=== PATIENT | male | born 1960 | race Caucasian/White ===

== ENCOUNTER 2018-05-05 10:11 | Emergency (ER) | payer OTHER ==
[~2018-05-05] VITALS: Ht 188 cm; Wt 133.8 kg
[~2018-05-05 10:11] MED LIST: BAYER CHEWABLE81 MG PO; CARVEDILOL12.5 MG PO; COLACE100 MG PO; HYDROCHLOROTH12.5 M1 PO; LIPITOR40 MG PO; LISINOPRIL10 MG PO; NITROGLYCERIN0.4 MG SUBLING; NORCO 5-325 TA1 EACH PO; PACERONE 200 M200 M1 PO; PROTONIX40 M1 PO
[2018-05-05] MEDS ORDERED: ENDOCET 5-3251 EACH PO (10:15)
[2018-05-05] MEDS ORDERED: ELIQUIS2.5 MG PO (10:15)
[2018-05-05] MEDS ORDERED: NEURONTIN 300300 M1 PO (10:16)
[2018-05-05] MEDS ORDERED: CELEBREX 200 M200 M1 PO (10:16)
[2018-05-05] MEDS ORDERED: OXYCONTIN15 MG PO (10:17)
[2018-05-05 10:37] LABS: ABSOLUTE BASOPHILS 0.1 thou/uL (0.0-0.2); ABSOLUTE EOSINOPHILS 0.3 thou/uL (0.0-0.7); BASOPHILS 1.2 %; EOSINOPHILS 3.2 %; HEMATOCRIT 38.2 % (42.0-52.0); HEMOGLOBIN 13.1 gm/dL (14.0-18.0); LYMPHOCYTES 11.4 %; MCHC 34.2 g/dL (28.0-37.0); MCV 90.6 fL (80.0-100.0); MONOCYTES 12.2 %; MPV 7.4 fl. (7.2-11.1); NUCLEATED RBCS 0 /100WBC; PLATELET COUNT* 371 thou/uL (150-400); RBC 4.22 mil/uL (4.50-6.00); RDW-CV 13.9 % (10.5-14.5); WBC 8.3 thou/uL (4.0-11.0)
[2018-05-05 11:02] LABS: INR 1.1; PROTIME 11.1 Seconds (9.20-11.50)
[2018-05-05 11:09] LABS: ALBUMIN 3.5 g/dL (3.4-5.0); ALKALINE PHOSPHATASE 105 U/L (46-116); ANION GAP 12 mmol/L (7-16); BUN 52 mg/dL (7-18); CHLORIDE 101 mmol/L (98-107); CO2 24 mmol/L (21-32); GLUCOSE 116 mg/dL (70-99); LIPASE 166 U/L (73-393); NT-PRO BRAIN NAT PEPTIDE 163 pg/mL (<300); SGOT 18 U/L (15-37); SGPT 33 U/L (30-65); SODIUM 137 mmol/L (136-145); TOTAL BILIRUBIN 1.5 mg/dL (<0.1-1.0); TOTAL PROTEIN 7.3 g/dL (6.4-8.2); TROPONIN-I LEVEL <0.06 ng/mL (<0.06)
[2018-05-05 13:50] VITALS: BP 122/69
--- NOTE | 2018-05-05 15:29 | EKG ---
[place] [address] ELECTROCARDIOGRAM REPORT Name: MARGRET LE Room: [facility]#: [id number] Admission: 05/05/18 Attend Phys: Discharge: 05/05/18 Date of : 60 Report #: [id number] THIS REPORT FOR: //name// [facility] ED Test Date: 2018-05-05 Test Time: 10:15:16 Pat Name: MARGRET LE Department: Room: Gender: M [employer] Furnace Operator: RITO : 1960 Requested By: Chi Reid Order Number: [id number] MD: Bill Banegas Measurements Intervals [place] Rate: 59 P: -13 [place]: 187 QRS: -17 QRSD: 105 T: 92 QT: 407 QTc: 404 Interpretive Statements Sinus rhythm Multiple ventricular premature complexes possible old inferior [place] Borderline repolarization abnormality Baseline wander in lead(s) III,V4,V5,V6 No previous ECG available for comparison Electronically Signed On 05-05-2018 15:29:39 CDT by Bill Banegas [email or web address] <ELECTRONICALLY SIGNED> By: Bill Banegas MD, [facility] 05/05/18 1529 1015 1015 Bill Banegas MD, [facility] /EPI
== END 2018-05-05 13:52 | disposition home or self-care (01) ==
LOC: M.ERS 10:11
PROVIDERS: Emergency Medicine
DX: E86.0 Dehydration (principal); E42 Marasmic kwashiorkor; I10 Essential (primary) hypertension